=== PATIENT | female | born 1980 | race Caucasian/White ===

== ENCOUNTER → 2018-11-04 | Day surgery (SDC) | payer BC ==
--- NOTE | 2018-11-04 15:34 | ULT ---
LEFT BREAST ULTRASOUND: COMPARISON: 03/11/2014 10/12/2018 HISTORY: A 38-year-old female with a previous biopsy of the left breast. The patient felt that there was a ne w mass in the left breast, near the prior surgical scar. She was seen for workup in [place], which r eported seeing a lesion in the upper outer aspect of the left breast, for which a biopsy was recommen ded. The patient presented today for an ultrasound-guided left breast mass biopsy. TECHNIQUE: Multiplanar juarez-scale and color Doppler images were obtained in a targeted ultrasound of the upper, outer aspect of the left breast. FINDINGS: The lesion seen on the ultrasound from [place] was again identified. However, this lesion is not a true lesion, but an area of slightly more hypoechoic breast tissue. When not turning on this lesion, this is not a discrete lesion and becomes normal appearing breast parenchyma. No suspicious shadowi ng or suspicious mass is seen. IMPRESSION: BI-RADS category 2-Benign findings. No lesion is present to biopsy. This was discussed with the patient and her mother at the time of e repeat ultrasound. POS: [facility]
== END ==
LOC: BICULT 12:56
PROVIDERS: ATTEND Surgery
DX: N63.21 Unspecified lump in the left breast, upper outer quadrant (principal)

== ENCOUNTER 2019-12-25 05:58 | Outpatient (CLI) | payer OTHER ==
[2019-12-25 18:14] LABS: BHCG - Serum Negative (NEGATIVE); Pregs Control Background? CLEAR/WHITE (CLR/WHITE); Pregs Control Bar Appear? YES (CONTROL BAR)
[2019-12-25 18:15] LABS: #Eosinphils 0.1 thou/uL (0.0-0.7); #Lymphocytes 2.4 thou/uL (1.20-3.40); #Monocytes 0.5 thou/uL (0.11-0.59); #Neutrophils 7.8 thou/uL (1.40-6.50); %Basophils 0.1 % (0.0-1.0); %Eosinophils 1.4 % (0.0-10.0); %Monocytes 4.5 % (0.0-10.0); Hemoglobin 13.3 g/dL (12.0-16.0); Mean Corpuscular HGB CONC 33.3 g/dL (32.0-36.0); Mean Corpuscular Hemoglobin 30.6 pg (27.0-31.0); Mean Corpuscular Volume 91.9 fL (78.0-98.0); Mean Platelet Volume 8.4 fL (7.4-10.4); Platelet Count 254 thou/uL (130-400); Red Blood Cell (RBC) Count 4.34 mill/uL (4.20-5.40); White Blood Cell (WBC) Count 10.8 thou/uL (4.8-10.8)
[2019-12-25 18:25] LABS: Anion Gap 14 mmol/L (10-20); BUN (Urea Nitrogen) 14 mg/dL (7.0-18.7); Calc. Creatinine Clearance 0 mL/min (70-130); Calcium 9.3 mg/dL (7.8-10.44); Carbon Dioxide 23 mmol/L (22-29); Chloride 106 mmol/L (98-107); Estimated GFR-MDRD 80; Glucose 88 mg/dL (70-105); Potassium 4.2 mmol/L (3.5-5.1); Sodium 139 mmol/L (136-145)
[2019-12-26 13:10] LABS: SARS-CoV-2 MS2 Positive; SARS-CoV-2 N Gene Negative; SARS-CoV-2 S Gene Negative; SARS-CoV-2 orf1ab Negative
== END 2019-12-25 05:59 | disposition home or self-care (01) ==
LOC: LABBT 05:58
PROVIDERS: ATTEND Surgery
DX: Z01.812 Encounter for preprocedural laboratory examination (principal); Z11.59 Encounter for screening for other viral diseases; N63.20 Unspecified lump in the left breast, unspecified quadrant
CPT/HCPCS: 80048; 84703; 85025; 87635; U0003

== ENCOUNTER 2019-12-29 07:47 | Day surgery (SDC) | payer OTHER ==
[2019-12-21 09:53] VITALS: BMI 22.4
[2019-12-29] MEDS ORDERED: Midazolam HCl 2 mg/2 ml Vial ONE (09:35)
[2019-12-29] MEDS ORDERED: Fentanyl 100 MCG/2 ML VIAL ONE (09:35)
[2019-12-29] MEDS ORDERED: Bupivacaine 0.25% HCL 30 ML VIAL ONE (09:37)
[2019-12-29] MEDS ORDERED: Lidocaine 1% w/Epinephrine 1:100K 20 ML VIAL ONE (09:37)
[2019-12-29] MEDS ORDERED: Promethazine HCl 25 MG/ML VIAL ONE (12:06)
[2019-12-29] MEDS ORDERED: PROPOFOL 200 MG/20 ML VIAL ONE (12:10)
[2019-12-29] MEDS ORDERED: Ondansetron PF 4 MG/2 ML Vial ONE (12:10)
[2019-12-29] MEDS ORDERED: Lidocaine 1% PF 5 ML VIAL ONE (12:10)
[2019-12-29] MEDS ORDERED: Dexamethasone 20 MG/5 ML VIAL ONE (12:10)
--- NOTE | 2020-01-02 10:32 | PDOC.OP ---
Operative Note - Operative Note Operative Note: PROCEDURE: Left breast excisional breast biopsy SURGEON: Aide Hurt M.D. DATE: 12/29/2019 PREOPERATIVE DIAGNOSIS: Recurrent phyllodes tumor of left breast POSTOPERATIVE DIAGNOSIS: Recurrent phyllodes tumor of left breast HISTORY: Patient with history of phyllodes tumor of left breast excised at another facility many years ago with positive margins. She did not undergo reexcision at that time. She has since had a recurrent phyllodes tumor excised near the previous biopsy site and presented with a recurrent mass also adjacent to the old biopsy site consistent with recurrence. Wide local excision was recommended. FINDINGS: Well demarcated firm oblong mass grossly completely excised. PROCEDURE IN DETAIL: After informed consent was obtained the patient was taken to the operating room and placed in supine position. General anesthesia was administered and she was prepped and draped in a standard sterile fashion. An ultrasound was used to rosalia the margins of the mass in the left upper quadrant. Since this was oriented in an oblong radial manner extending superolaterally from her previous incision, it was felt that it would be difficult to get good margins using the old circumareolar biopsy incision. For this reason a radially oriented incision was made over the long axis of the mass. Local anesthesia was infused to the area prior to the incision. Dissection was carried out beyond the margins of the mass and all directions and the mass was completely excised from the underlying tissue. Due to the small breast size this did expose the underlying pectoralis muscle. At no point was the mass exposed. The mass was oriented with a long lateral and short superior and looped superficial suture and the wound was irrigated and hemostasis obtained using Bovie electrocautery. Additional local anesthesia was infused to the skin and subcutaneous tissues and the subcutaneous tissues were closed with 3-0 Monocryl sutures. Additional local anesthesia was infused into the biopsy site with a blunt needle and the skin was closed with a running 4-0 subcuticular Monocryl suture. Dermabond dressings were placed and once this was dry a fluff compression dressing was placed. The patient was extubated and taken to recovery in good condition. Estimated blood loss was minimal. There were no complications. Specimen is left breast mass.
== END 2019-12-29 12:45 | disposition home or self-care (01) ==
LOC: SDC 07:47
PROVIDERS: ATTEND Surgery
PROC: 0HBU0ZZ Excision of Left Breast, Open Approach (ICD-10-PCS; principal; 2019-12-29)
DX: D24.2 Benign neoplasm of left breast (principal); Z80.3 Family history of malignant neoplasm of breast
CPT/HCPCS: 88305; J1100; J2250; J2405; J2550; J2704; J3010; S0020

== ENCOUNTER → 2021-12-26 | Day surgery (SDC) | payer OTHER | END | disposition home or self-care (01) | LOC: BICULT 12:56 | PROVIDERS: ATTEND Surgery | DX: N63.15 Unspecified lump in the right breast, overlapping quadrants (principal); Z80.3 Family history of malignant neoplasm of breast ==